=== PATIENT | female | born 1965 | race Two or more races ===

== ENCOUNTER 2020-07-04 18:07 | Inpatient (IN) | payer MEDICAID ==
[~2020-07-04] VITALS: Ht 160 cm; Wt 88.5 kg
[2020-07-04] MEDS ORDERED: PANTOPRAZOLE 40 MG/10 ML VIAL INJ IV STA (18:10)
[2020-07-04] MEDS ORDERED: MORPHINE SULFATE 4 MG/ML SYR/VIAL IV ONE (18:15)
[2020-07-04] MEDS ORDERED: ONDANSETRON HCL 4 MG/2 ML VIAL IV ONE (18:15)
[2020-07-04] MEDS ORDERED: SODIUM CHLORIDE 0.9% 500 ML IVB ONE (18:15)
[2020-07-04 19:07] LABS: Basophils # (auto) 0.1 10 ^3/uL (0-0.2); Eosinophils # (auto) 0.1 10 ^3/uL (0-0.8); Hemoglobin 11.9 g/dL (12.2-16.2); Lymphocytes # (auto) 1.2 10 ^3/uL (0.4-5.4)
[2020-07-04 19:09] LABS: Basophils % (auto) 0.6 % (0.0-2.0); Eosinophils % (auto) 0.6 % (0.0-7.0); Hematocrit 34.7 % (36.0-46.0); Lymphocytes % (auto) 10.7 % (10.0-50.0); Mean Corpuscular Hemoglobin 30.6 pg (28.0-32.0); Mean Corpuscular Hgb Conc. 34.4 g/dL (32.0-36.0); Monocytes # (auto) 0.8 10 ^3/uL (0-1.3); Monocytes % (auto) 7.5 % (0.0-12.0); Neutrophils % (auto) 80.6 % (37.0-80.0); Platelet Count (auto) 479 10^3/uL (140-450); Red Cell Distribution Width 12.7 % (11.8-14.3); White Blood Cell 11.2 10^3/uL (4.4-10.8)
[2020-07-04 19:22] LABS: Albumin 2.9 g/dL (3.4-5.0); Calcium 8.8 mg/dL (8.5-10.1); Potassium 4.2 mmol/L (3.5-5.1)
[2020-07-04 19:24] LABS: BUN/Creatinine Ratio 24.2
[2020-07-04 19:27] LABS: Bilirubin, Total 0.7 mg/dL (0.2-1.0); Total Protein 7.4 g/dL (6.4-8.2)
[2020-07-04 20:14] LABS: Urine Bacteria NONE SEEN /hpf (None Seen); Urine Blood 2+ /uL (Negative); Urine Mucus FEW (None Seen); Urine WBC 21 /hpf (0 - 5)
[2020-07-04] MEDS ORDERED: cefTRIAXone 1GM/50ML D5W 50 ML IV ONE (21:15)
[2020-07-04] MEDS: SODIUM CHLORIDE 0.9% 1,000 ML IV SCH (21:44)
[2020-07-04] MEDS: metroNIDAZOLE 500MG/100ML 100 ML IV SCH (23:12)
[2020-07-05 03:15] VITALS: BP 128/69
[2020-07-05] MEDS: MORPHINE SULFATE 4 MG/ML SYR/VIAL IV PRN ×2 (03:40→20:54)
[2020-07-05] MEDS ORDERED: INFLUENZA QUAD 2020-2021 0.5 ML SYRG IM ONE (05:30)
[2020-07-05] MEDS: metroNIDAZOLE 500MG/100ML 100 ML IV SCH ×3 (05:43→20:54)
[2020-07-05 07:10] LABS: Basophils # (auto) 0.1 10 ^3/uL (0-0.2); Basophils % (auto) 0.7 % (0.0-2.0); Eosinophils # (auto) 0.1 10 ^3/uL (0-0.8); Hemoglobin 11.2 g/dL (12.2-16.2)
[2020-07-05 07:11] LABS: Eosinophils % (auto) 0.6 % (0.0-7.0); Hematocrit 32.3 % (36.0-46.0); Lymphocytes # (auto) 1.1 10 ^3/uL (0.4-5.4); Lymphocytes % (auto) 10.5 % (10.0-50.0); Mean Corpuscular Hemoglobin 30.9 pg (28.0-32.0); Mean Corpuscular Hgb Conc. 34.8 g/dL (32.0-36.0); Mean Corpuscular Volume 88.7 fL (80.0-100.0); Neutrophils # (auto) 8.6 10 ^3/uL (1.6-8.6); Neutrophils % (auto) 79.2 % (37.0-80.0); Platelet Count (auto) 456 10^3/uL (140-450); Red Blood Cells 3.64 10^6/uL (4.0-5.20); Red Cell Distribution Width 13.1 % (11.8-14.3); White Blood Cell 10.8 10^3/uL (4.4-10.8)
[2020-07-05 07:25] LABS: Albumin 2.4 g/dL (3.4-5.0); Calcium 7.9 mg/dL (8.5-10.1); Potassium 4.1 mmol/L (3.5-5.1)
[2020-07-05 07:27] LABS: BUN/Creatinine Ratio 27.1
[2020-07-05 07:29] LABS: Bilirubin, Total 0.5 mg/dL (0.2-1.0); Total Protein 6.2 g/dL (6.4-8.2)
[2020-07-05 08:41] VITALS: BP 125/71
[2020-07-05] MEDS: PANTOPRAZOLE 40 MG/10 ML VIAL INJ IV SCH (10:23)
[2020-07-05] MEDS: cefTRIAXone 1GM/50ML D5W 50 ML IV SCH (10:23)
[2020-07-05] MEDS: SODIUM CHLORIDE 0.9% 1,000 ML IV SCH (10:23)
[2020-07-05 12:47] VITALS: BP 126/71
[2020-07-05] MEDS: D5W/SOD CHLO 0.9% 1,000 ML IV SCH (15:29)
[2020-07-05 17:00] VITALS: BP_SYST 123; BP_SYST 160; BP_DIAS 121; BP_DIAS 74
[2020-07-05 22:41] VITALS: BP 127/73
[2020-07-06] MEDS: D5W/SOD CHLO 0.9% 1,000 ML IV SCH ×2 (03:49→09:59)
[2020-07-06 05:38] VITALS: BP 131/81
[2020-07-06] MEDS: metroNIDAZOLE 500MG/100ML 100 ML IV SCH ×3 (05:42→22:47)
[2020-07-06 07:31] LABS: Albumin 2.4 g/dL (3.4-5.0); Calcium 8.4 mg/dL (8.5-10.1); Magnesium 2.5 mg/dL (1.6-2.6); Potassium 3.8 mmol/L (3.5-5.1)
[2020-07-06 07:34] LABS: Bilirubin, Total 0.4 mg/dL (0.2-1.0); Total Protein 6.3 g/dL (6.4-8.2)
[2020-07-06 07:35] LABS: INR 1.17 (0.9-1.15)
[2020-07-06 09:02] VITALS: BP 135/83
[2020-07-06] MEDS: cefTRIAXone 1GM/50ML D5W 50 ML IV SCH (09:59)
[2020-07-06] MEDS: PANTOPRAZOLE 40 MG/10 ML VIAL INJ IV SCH (09:59)
[2020-07-06 12:41] VITALS: BP 123/69
[2020-07-06 17:07] VITALS: BP 121/69
[2020-07-06 22:00] VITALS: BP 119/80
[2020-07-07] MEDS: MORPHINE SULFATE 4 MG/ML SYR/VIAL IV PRN ×2 (04:35→21:39)
[2020-07-07 05:00] VITALS: BP 126/72
[2020-07-07] MEDS: metroNIDAZOLE 500MG/100ML 100 ML IV SCH ×3 (05:09→21:39)
[2020-07-07] MEDS: D5W/SOD CHLO 0.9% 1,000 ML IV SCH ×2 (06:18→14:35)
[2020-07-07] MEDS: PANTOPRAZOLE 40 MG/10 ML VIAL INJ IV SCH (08:19)
[2020-07-07] MEDS: cefTRIAXone 1GM/50ML D5W 50 ML IV SCH (08:19)
[2020-07-07 09:28] LABS: Hepatitis B Surface Antibody Negative
[2020-07-07 10:02] LABS: Hepatitis A Total Antibody Positive
[2020-07-07 13:09] LABS: Hepatitis B Core Total AB Negative
[2020-07-07 13:10] LABS: Hepatitis B Surface Antigen Negative (Negative); Hepatitis C Antibody Negative (Negative)
[2020-07-07 13:16] VITALS: BP 118/71
[2020-07-07 17:00] VITALS: BP 124/74
[2020-07-07 22:00] VITALS: BP 129/71
[2020-07-08] MEDS ORDERED: CLOP75TA70 PO (01:20)
[2020-07-08] MEDS ORDERED: METO25TA5 PO (01:20)
[2020-07-08] MEDS ORDERED: ASPI325T4 PO (01:20)
[2020-07-08] MEDS ORDERED: MAGN400T40 PO (01:20)
[2020-07-08] MEDS ORDERED: METF-370 PO (01:20)
[2020-07-08] MEDS ORDERED: LISI-648 PO (01:20)
[2020-07-08] MEDS ORDERED: EMPA1TAB3 PO (01:20)
[2020-07-08] MEDS ORDERED: SOTA80TA PO (01:20)
[2020-07-08] MEDS ORDERED: CHOL20007 PO (01:20)
[2020-07-08] MEDS ORDERED: ISOS60TA24 PO (01:20)
[2020-07-08] MEDS ORDERED: ATOR40TA52 PO (01:20)
[2020-07-08] MEDS ORDERED: APIX5TAB PO (01:20)
[2020-07-08 05:00] VITALS: BP 134/77
[2020-07-08] MEDS: metroNIDAZOLE 500MG/100ML 100 ML IV SCH ×3 (06:17→22:37)
[2020-07-08] MEDS: D5W/SOD CHLO 0.9% 1,000 ML IV SCH ×2 (06:33→15:06)
[2020-07-08 07:53] LABS: Basophils # (auto) 0.1 10 ^3/uL (0-0.2); Eosinophils # (auto) 0.1 10 ^3/uL (0-0.8); Lymphocytes # (auto) 1.2 10 ^3/uL (0.4-5.4); Lymphocytes % (auto) 11.6 % (10.0-50.0)
[2020-07-08 08:01] LABS: Albumin 2.2 g/dL (3.4-5.0); Magnesium 2.3 mg/dL (1.6-2.6); Potassium 3.7 mmol/L (3.5-5.1)
[2020-07-08 08:05] LABS: Alanine Aminotransferase 11 U/L (13-56); Alkaline Phosphatase 45 U/L (45-117); Aspartate Aminotransferase 20 U/L (15-37); Bilirubin, Direct < 0.1 mg/dL (0-0.2); Bilirubin, Total 0.3 mg/dL (0.2-1.0); Total Protein 5.8 g/dL (6.4-8.2)
[2020-07-08 08:28] LABS: Basophils % (auto) 0.7 % (0.0-2.0); Eosinophils % (auto) 0.7 % (0.0-7.0); Hematocrit 35.4 % (36.0-46.0); Hemoglobin 11.7 g/dL (12.2-16.2); Mean Corpuscular Hemoglobin 29.8 pg (28.0-32.0); Mean Corpuscular Hgb Conc. 33.1 g/dL (32.0-36.0); Monocytes # (auto) 0.9 10 ^3/uL (0-1.3); Monocytes % (auto) 8.3 % (0.0-12.0); Neutrophils # (auto) 8.1 10 ^3/uL (1.6-8.6); Neutrophils % (auto) 78.7 % (37.0-80.0); Platelet Count (auto) 588 10^3/uL (140-450); Red Blood Cells 3.94 10^6/uL (4.0-5.20); Red Cell Distribution Width 13.3 % (11.8-14.3); White Blood Cell 10.3 10^3/uL (4.4-10.8)
[2020-07-08] MEDS: cefTRIAXone 1GM/50ML D5W 50 ML IV SCH (08:59)
[2020-07-08] MEDS: PANTOPRAZOLE 40 MG/10 ML VIAL INJ IV SCH (08:59)
[2020-07-08 09:00] VITALS: BP 136/74
[2020-07-08 13:00] VITALS: BP 129/77
[2020-07-08 13:05] LABS: Albumin 2.3 g/dL (3.4-5.0); Potassium 3.7 mmol/L (3.5-5.1)
[2020-07-08 13:09] LABS: BUN/Creatinine Ratio 26.3; Bilirubin, Total 0.2 mg/dL (0.2-1.0); Total Protein 5.9 g/dL (6.4-8.2)
[2020-07-08 14:55] LABS: INR 1.14 (0.9-1.15); Partial Thromboplastin Time 28.3 sec (23.0-31.2)
[2020-07-08 17:38] VITALS: BP 118/68
[2020-07-08] MEDS ORDERED: MIDAZOLAM HCL 1MG/1ML-2 ML VIAL IV ONE (18:54)
[2020-07-08] MEDS ORDERED: fentaNYL CITRATE 250 MCG/5 ML VL IV ONE (18:54)
[2020-07-08] MEDS ORDERED: ROCURONIUM 10MG/ML 10ML VIAL IV ONE (18:55)
[2020-07-08] MEDS ORDERED: LIDOCAINE W/ EPINEPHRINE 1% 20ML VIAL ONE (19:17)
[2020-07-08] MEDS ORDERED: BUPIVACAINE 0.25% INJ 50ML VIAL ONE (19:17)
[2020-07-08] MEDS ORDERED: LIDOCAINE 2% (LOCAL ANESTH.) PF 5ml SDV IJ ONE (20:19)
[2020-07-08] MEDS ORDERED: PROPOFOL 10 MG/ML 20 ML IV ONE (20:19)
[2020-07-08] MEDS ORDERED: HYDROmorphone HCL 2 MG/ML VL IV PRN (20:45)
[2020-07-08] MEDS ORDERED: ONDANSETRON HCL 4 MG/2 ML VIAL IV PRN (20:45)
[2020-07-08] MEDS ORDERED: HYDROmorphone HCL 2 MG/ML VL ONE (20:48)
[2020-07-08 22:00] VITALS: BP 116/72
[2020-07-08] MEDS: ONDANSETRON HCL 4 MG/2 ML VIAL IV PRN (22:58)
[2020-07-09 05:00] VITALS: BP 114/75
[2020-07-09] MEDS: metroNIDAZOLE 500MG/100ML 100 ML IV SCH ×3 (05:57→21:50)
[2020-07-09] MEDS: HYDROmorphone HCL 2 MG/ML VL IV PRN ×3 (05:57→21:50)
[2020-07-09 06:53] LABS: Basophils # (auto) 0 10 ^3/uL (0-0.2); Basophils % (auto) 0.3 % (0.0-2.0); Eosinophils # (auto) 0 10 ^3/uL (0-0.8); Eosinophils % (auto) 0.2 % (0.0-7.0); Hemoglobin 11.6 g/dL (12.2-16.2); Lymphocytes # (auto) 1.2 10 ^3/uL (0.4-5.4); Lymphocytes % (auto) 10.6 % (10.0-50.0); Mean Corpuscular Hemoglobin 30.8 pg (28.0-32.0); Mean Corpuscular Hgb Conc. 34.3 g/dL (32.0-36.0); Mean Corpuscular Volume 89.8 fL (80.0-100.0); Monocytes % (auto) 9.1 % (0.0-12.0); Neutrophils # (auto) 8.8 10 ^3/uL (1.6-8.6); Neutrophils % (auto) 79.8 % (37.0-80.0); Platelet Count (auto) 555 10^3/uL (140-450); Red Blood Cells 3.78 10^6/uL (4.0-5.20); Red Cell Distribution Width 13.1 % (11.8-14.3); White Blood Cell 11.1 10^3/uL (4.4-10.8)
[2020-07-09 07:04] LABS: Calcium 7.8 mg/dL (8.5-10.1); Potassium 4.2 mmol/L (3.5-5.1)
[2020-07-09 07:05] LABS: INR 1.15 (0.9-1.15)
[2020-07-09 07:08] LABS: BUN/Creatinine Ratio 30.4; Bilirubin, Total 0.3 mg/dL (0.2-1.0); Total Protein 5.3 g/dL (6.4-8.2)
[2020-07-09] MEDS: PANTOPRAZOLE 40 MG/10 ML VIAL INJ IV SCH (08:47)
[2020-07-09] MEDS: cefTRIAXone 1GM/50ML D5W 50 ML IV SCH (08:47)
[2020-07-09 09:00] VITALS: BP 106/64
[2020-07-09] MEDS: ONDANSETRON HCL 4 MG/2 ML VIAL IV PRN (11:15)
[2020-07-09 13:00] VITALS: BP 104/83
[2020-07-09 17:00] VITALS: BP 109/76
[2020-07-09] MEDS: D5W/SOD CHLO 0.9% 1,000 ML IV SCH (17:52)
[2020-07-09 22:00] VITALS: BP 115/64
[2020-07-10] MEDS: D5W/SOD CHLO 0.9% 1,000 ML IV SCH (04:55)
[2020-07-10 05:00] VITALS: BP 117/71
[2020-07-10] MEDS: metroNIDAZOLE 500MG/100ML 100 ML IV SCH ×3 (05:46→21:55)
[2020-07-10 07:13] LABS: Basophils # (auto) 0.1 10 ^3/uL (0-0.2); Basophils % (auto) 0.6 % (0.0-2.0); Eosinophils # (auto) 0.1 10 ^3/uL (0-0.8); Eosinophils % (auto) 0.6 % (0.0-7.0); Hematocrit 33.9 % (36.0-46.0); Hemoglobin 11.6 g/dL (12.2-16.2); Lymphocytes # (auto) 1.4 10 ^3/uL (0.4-5.4); Lymphocytes % (auto) 11.2 % (10.0-50.0); Mean Corpuscular Hemoglobin 30.5 pg (28.0-32.0); Mean Corpuscular Hgb Conc. 34.3 g/dL (32.0-36.0); Mean Corpuscular Volume 89.1 fL (80.0-100.0); Monocytes % (auto) 8.1 % (0.0-12.0); Neutrophils # (auto) 9.8 10 ^3/uL (1.6-8.6); Neutrophils % (auto) 79.5 % (37.0-80.0); Platelet Count (auto) 582 10^3/uL (140-450); Red Blood Cells 3.81 10^6/uL (4.0-5.20); Red Cell Distribution Width 13.5 % (11.8-14.3); White Blood Cell 12.4 10^3/uL (4.4-10.8)
[2020-07-10 07:29] LABS: Albumin 2.1 g/dL (3.4-5.0); Calcium 7.8 mg/dL (8.5-10.1)
[2020-07-10 07:38] LABS: Bilirubin, Total 0.3 mg/dL (0.2-1.0); Total Protein 5.5 g/dL (6.4-8.2)
[2020-07-10 08:44] VITALS: BP 114/74
[2020-07-10] MEDS: cefTRIAXone 1GM/50ML D5W 50 ML IV SCH (08:45)
[2020-07-10] MEDS: PANTOPRAZOLE 40 MG/10 ML VIAL INJ IV SCH (08:46)
[2020-07-10] MEDS: HYDROmorphone HCL 2 MG/ML VL IV PRN ×2 (10:00→20:39)
[2020-07-10 13:00] VITALS: BP 111/65
[2020-07-10 16:44] VITALS: BP 120/68
[2020-07-10] MEDS: ONDANSETRON HCL 4 MG/2 ML VIAL IV PRN (19:52)
[2020-07-10 22:00] VITALS: BP 120/68
[2020-07-11] MEDS: D5W/SOD CHLO 0.9% 1,000 ML IV SCH (04:49)
[2020-07-11 05:00] VITALS: BP 128/71
[2020-07-11] MEDS: metroNIDAZOLE 500MG/100ML 100 ML IV SCH ×3 (05:41→22:48)
[2020-07-11 08:53] LABS: Basophils # (auto) 0.1 10 ^3/uL (0-0.2); Basophils % (auto) 0.7 % (0.0-2.0); Eosinophils # (auto) 0 10 ^3/uL (0-0.8); Eosinophils % (auto) 0.4 % (0.0-7.0); Hematocrit 36.3 % (36.0-46.0); Lymphocytes # (auto) 1.4 10 ^3/uL (0.4-5.4); Lymphocytes % (auto) 10.5 % (10.0-50.0); Mean Corpuscular Hemoglobin 29.8 pg (28.0-32.0); Mean Corpuscular Hgb Conc. 33.1 g/dL (32.0-36.0); Mean Corpuscular Volume 90.1 fL (80.0-100.0); Monocytes % (auto) 7.2 % (0.0-12.0); Neutrophils # (auto) 10.8 10 ^3/uL (1.6-8.6); Neutrophils % (auto) 81.2 % (37.0-80.0); Nucleated Red Blood Cells % 0.1 %; Platelet Count (auto) 667 10^3/uL (140-450); Red Blood Cells 4.02 10^6/uL (4.0-5.20); Red Cell Distribution Width 13.4 % (11.8-14.3); White Blood Cell 13.3 10^3/uL (4.4-10.8)
[2020-07-11] MEDS: PANTOPRAZOLE 40 MG/10 ML VIAL INJ IV SCH (08:58)
[2020-07-11] MEDS: cefTRIAXone 1GM/50ML D5W 50 ML IV SCH (08:58)
[2020-07-11 09:00] VITALS: BP 116/67
[2020-07-11 09:51] LABS: Albumin 1.9 g/dL (3.4-5.0); BUN/Creatinine Ratio 34.7; Bilirubin, Total 0.3 mg/dL (0.2-1.0); Calcium 7.7 mg/dL (8.5-10.1); Total Protein 5.3 g/dL (6.4-8.2)
[2020-07-11] MEDS: SODIUM CHLORIDE 0.9% 1,000 ML IV SCH (11:34)
[2020-07-11 13:00] VITALS: BP 115/69
[2020-07-11 17:00] VITALS: BP 114/77
[2020-07-11 22:00] VITALS: BP 120/70
[2020-07-12 05:00] VITALS: BP 118/65
[2020-07-12] MEDS: metroNIDAZOLE 500MG/100ML 100 ML IV SCH ×2 (07:04→15:44)
[2020-07-12] MEDS: SODIUM CHLORIDE 0.9% 1,000 ML IV SCH (07:05)
[2020-07-12 07:46] LABS: Basophils # (auto) 0.1 10 ^3/uL (0-0.2); Eosinophils # (auto) 0.1 10 ^3/uL (0-0.8); Eosinophils % (auto) 0.4 % (0.0-7.0); Hemoglobin 11.4 g/dL (12.2-16.2); Mean Corpuscular Volume 89.1 fL (80.0-100.0); Monocytes # (auto) 0.9 10 ^3/uL (0-1.3); Neutrophils # (auto) 10.8 10 ^3/uL (1.6-8.6); White Blood Cell 13.1 10^3/uL (4.4-10.8)
[2020-07-12 07:48] LABS: Basophils % (auto) 0.6 % (0.0-2.0); Hematocrit 32.9 % (36.0-46.0); Lymphocytes # (auto) 1.3 10 ^3/uL (0.4-5.4); Lymphocytes % (auto) 9.9 % (10.0-50.0); Mean Corpuscular Hemoglobin 30.9 pg (28.0-32.0); Mean Corpuscular Hgb Conc. 34.7 g/dL (32.0-36.0); Monocytes % (auto) 6.7 % (0.0-12.0); Neutrophils % (auto) 82.4 % (37.0-80.0); Platelet Count (auto) 582 10^3/uL (140-450); Red Blood Cells 3.69 10^6/uL (4.0-5.20); Red Cell Distribution Width 13.4 % (11.8-14.3)
[2020-07-12 08:17] LABS: Magnesium 2.1 mg/dL (1.6-2.6)
[2020-07-12] MEDS: PANTOPRAZOLE 40 MG/10 ML VIAL INJ IV SCH (08:54)
[2020-07-12] MEDS: cefTRIAXone 1GM/50ML D5W 50 ML IV SCH (08:54)
[2020-07-12 09:00] VITALS: BP 114/69
[2020-07-12] MEDS ORDERED: LACTULOSE 20Gm/30ML SOLN PO ONE (11:30)
[2020-07-12] MEDS ORDERED: DOCUSATE SOD 100 MG CAP PO PRN (11:30)
[2020-07-12 13:00] VITALS: BP 114/82
[2020-07-12] MEDS ORDERED: LACTULOSE 20Gm/30ML SOLN PO PRN (14:00)
[2020-07-12 16:47] VITALS: BP 113/73
[2020-07-12 20:00] VITALS: BP 119/70
[2020-07-12 22:10] VITALS: BP 119/70
[2020-07-13] MEDS: SODIUM CHLORIDE 0.9% 1,000 ML IV SCH (03:15)
[2020-07-13] MEDS: metroNIDAZOLE 500MG/100ML 100 ML IV SCH ×4 (04:58→21:26)
[2020-07-13 05:13] VITALS: BP 118/73
[2020-07-13 09:00] VITALS: BP 111/64
[2020-07-13] MEDS: PANTOPRAZOLE 40 MG/10 ML VIAL INJ IV SCH (09:09)
[2020-07-13] MEDS: cefTRIAXone 1GM/50ML D5W 50 ML IV SCH (09:09)
[2020-07-13 13:00] VITALS: BP 119/67
[2020-07-13] MEDS ORDERED: IOHEXOL 300 MG/ML 100ML BOTTLE IJ ONE (13:49)
[2020-07-13 16:57] VITALS: BP 106/62
[2020-07-13] MEDS: HYDROmorphone HCL 2 MG/ML VL IV PRN (18:29)
[2020-07-13 22:00] VITALS: BP 112/65
[2020-07-14 05:00] VITALS: BP 112/73
[2020-07-14] MEDS: metroNIDAZOLE 500MG/100ML 100 ML IV SCH ×3 (05:18→21:20)
[2020-07-14 09:00] VITALS: BP_SYST 101; BP_SYST 145; BP_DIAS 68; BP_DIAS 75
[2020-07-14] MEDS: PANTOPRAZOLE 40 MG/10 ML VIAL INJ IV SCH (09:10)
[2020-07-14] MEDS: cefTRIAXone 1GM/50ML D5W 50 ML IV SCH (09:11)
[2020-07-14] MEDS: HYDROmorphone HCL 2 MG/ML VL IV PRN ×3 (09:22→20:00)
[2020-07-14 13:00] VITALS: BP 115/73
[2020-07-14 17:14] VITALS: BP 115/68
[2020-07-14 22:00] VITALS: BP 115/67
[2020-07-15] MEDS: HYDROmorphone HCL 2 MG/ML VL IV PRN ×3 (01:48→16:03)
[2020-07-15 05:00] VITALS: BP_SYST 116; BP_SYST 154; BP_DIAS 65; BP_DIAS 83
[2020-07-15] MEDS: metroNIDAZOLE 500MG/100ML 100 ML IV SCH ×2 (05:57→16:10)
[2020-07-15 07:11] LABS: Basophils # (auto) 0 10 ^3/uL (0-0.2); Eosinophils # (auto) 0 10 ^3/uL (0-0.8); Eosinophils % (auto) 0.1 % (0.0-7.0); Mean Corpuscular Hemoglobin 30.4 pg (28.0-32.0)
[2020-07-15 07:13] LABS: Basophils % (auto) 0.3 % (0.0-2.0); Hematocrit 34.4 % (36.0-46.0); Hemoglobin 11.8 g/dL (12.2-16.2); Lymphocytes % (auto) 6.9 % (10.0-50.0); Mean Corpuscular Hgb Conc. 34.3 g/dL (32.0-36.0); Mean Corpuscular Volume 88.6 fL (80.0-100.0); Monocytes % (auto) 6.9 % (0.0-12.0); Neutrophils # (auto) 12.6 10 ^3/uL (1.6-8.6); Neutrophils % (auto) 85.8 % (37.0-80.0); Platelet Count (auto) 684 10^3/uL (140-450); Red Blood Cells 3.89 10^6/uL (4.0-5.20); White Blood Cell 14.7 10^3/uL (4.4-10.8)
[2020-07-15 07:26] LABS: BUN/Creatinine Ratio 35.9; Calcium 7.8 mg/dL (8.5-10.1); Magnesium 2.2 mg/dL (1.6-2.6); Potassium 4.4 mmol/L (3.5-5.1)
[2020-07-15 07:31] LABS: Urine Amorphous Crystal FEW /hpf (None Seen); Urine Bacteria NONE SEEN /hpf (None Seen); Urine Blood TRACE /uL (Negative); Urine Budding Yeast OCCASIONAL /hpf (None Seen); Urine Mucus MANY (None Seen); Urine Specific Gravity 1.034 (1.001-1.035); Urine WBC 36 /hpf (0 - 5)
[2020-07-15 08:00] VITALS: BP 107/66
[2020-07-15] MEDS: cefTRIAXone 1GM/50ML D5W 50 ML IV SCH (09:28)
[2020-07-15] MEDS: PANTOPRAZOLE 40 MG/10 ML VIAL INJ IV SCH (09:28)
[2020-07-15 12:00] VITALS: BP 107/70
[2020-07-15] MEDS ORDERED: IOHEXOL 300 MG/ML 100ML BOTTLE IJ ONE (15:06)
[2020-07-15 16:00] VITALS: BP 108/68
== END 2020-07-15 17:00 | disposition left against medical advice (07) | DRG 263 ==
LOC: ER 18:07 → OVERFLOW 21:13 → CENTRAL 07-05 03:10
PROVIDERS: ADMIT Nurse Practitioner; ATTEND Internal Medicine
PROC: 0D9W4ZX Drainage of Peritoneum, Percutaneous Endoscopic Approach, Diagnostic (ICD-10-PCS; 2020-07-08)
PROC: 0W9G4ZX Drainage of Peritoneal Cavity, Percutaneous Endoscopic Approach, Diagnostic (ICD-10-PCS; 2020-07-08)
PROC: 0FT44ZZ Resection of Gallbladder, Percutaneous Endoscopic Approach (ICD-10-PCS; principal; 2020-07-08 18:51)
DX: K80.01 Calculus of gallbladder with acute cholecystitis with obstruction (principal); R18.0 Malignant ascites; C78.6 Secondary malignant neoplasm of retroperitoneum and peritoneum; D68.9 Coagulation defect, unspecified; R65.10 Systemic inflammatory response syndrome (SIRS) of non-infectious origin without acute organ dysfunction; C56.1 Malignant neoplasm of right ovary; N39.0 Urinary tract infection, site not specified; B15.9 Hepatitis A without hepatic coma; E66.9 Obesity, unspecified; Z53.29 Procedure and treatment not carried out because of patient's decision for other reasons; Z20.822 Contact with and (suspected) exposure to COVID-19; Z80.9 Family history of malignant neoplasm, unspecified; Z82.49 Family history of ischemic heart disease and other diseases of the circulatory system; Z83.3 Family history of diabetes mellitus; Z68.32 Body mass index [BMI] 32.0-32.9, adult
CPT/HCPCS: 36415; 71045; 74177; 74181; 76705; 78226; 80048; 80053; 80076; 81001; 82105; 82150; 82247; 83036; 83615; 83690; 83735; 84132; 84702; 85025; 85610; 85730; 86304; 86704; 86706; 86708; 86803; 86850; 86900; 86901; 87070; 87075; 87086; 87205; 87340; 87426; 93005; 96361; 96365; 96375; C9113; G0378; J0696; J2001; J2250; J2405; J2704; J3490; J7042